=== PATIENT | male | born 1990 | race Caucasian/White ===

== ENCOUNTER 2017-04-10 12:45 | Emergency (ER) | payer OTHER ==
[2017-04-10 13:07] VITALS: BP 129/82; PULSE 80; RESP 17; TEMP 98.1; O2SAT 100
[2017-04-10] MEDS ORDERED: Lidocaine 2% Inj (20ml) IJ STA (13:19)
[2017-04-10] MEDS ORDERED: TDAP Vaccine 0.5 mL Syr IM ONE (13:19)
--- NOTE | 2017-04-10 13:21 | ED PDOC ---
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 Pt reports, " was slicing tomatoes, slipped cut my fingers". Laceration to Right 2nd and 3rd fingers with some nail injury noted, mild bleeding from Right index noted. Otherwise, pt denies obvious deformity, weakness, sensory or vascular deficits. Ambulate to ED for evaluation, not in any apparent distress. 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 - Endocrine/Metabolic Hx Endocrine Disorders: No - Hematological/Oncological Hx Blood Disorders: No - Integumentary Hx Dermatological Disorder: No - Musculoskeletal/Rheumatological Hx Musculoskeletal Disorders: No - Genitourinary/Gynecological Hx Bladder Stone: No - Psychiatric Hx Bipolar Disorder: No Hx Substance Use: No - Surgical History Hx Arthroscopy: No - Anesthesia Hx Anesthesia: No Family/Social History - Physician Review Nursing Documentation Reviewed: Yes Family/Social History: No Known Family HX Smoking Status: Current Some Days Smoker Hx Alcohol Use: Yes Frequency of alcohol use: Socially Hx Substance Use: No Allergies/Home Meds Allergies/Adverse Reactions: Allergies No Known Allergies Allergy (Verified 04/10/17 13:03) Review of Systems - Physician Review All systems were reviewed & negative as marked: Yes - Review of Systems Constitutional: Normal Musculoskeletal: Normal Skin: Laceration Neurological: Normal Endocrine: Normal Hemo/Lymphatic: Normal Psychiatric: Normal Physical Exam Vital Signs Reviewed: Yes Vital Signs Temp Pulse Resp BP Pulse Ox 04/10/17 13:06 98.1 F 80 17 129/82 100 Temperature: Afebrile Blood Pressure: Normal Pulse: Regular Respiratory Rate: Normal Appearance: Positive for: Well-Appearing, Non-Toxic, Comfortable Pain Distress: Mild Mental Status: Positive for: Alert and Oriented X 3 - Systems Exam Upper Extremity: Present: Normal ROM (of B/L UEs, no neurovasculard eficits.), NORMAL PULSES, Neurovascularly Intact, Capillary Refill < 2s. No: Deformity Neurological: Present: GCS=15, Motor Func Grossly Intact, Normal Sensory Function, Norm Deep Tendon Reflexes Skin: Present: Warm, Dry, Normal Color, Laceration (Right index finger: 5cm C- shape cutaneous laceration over radial aspect middle and distal phalanx, partial nail avulsion. Mild bloody oozing noted from wound.), Other (Right 3rd finger: small superficial laceration 1cm length over distal phalanx with partial nail avulsion.) Psychiatric: Present: Alert, Oriented x 3 Medical Decision Making ED Course and Treatment: 04/10/17 On re-eavl, pt is afebrile, hemodynamicaly stable Right hand: exam c/w laceration to Right index and 3rd finger with partial nail avulsion to both finger. Laceration repaired with sutures and skin adhesive. FAROM, no evidence of tendon or ligament injury, no neurovascular deficits. tetanus, oral abx given. Pt advised on wound care. ref. to f/u with PMD, hand specialists in 2 days for re-eval. return to ED if any worsening or new changes. - Medication Orders Current Medication Orders: Discontinued Medications Amoxicillin/Clavulanate Potassium (Augmentin 875 Mg-125 Mg Tab) 1 tab PO STAT STA PRN Reason: Protocol Stop: 04/10/17 14:34 Last Admin: 04/10/17 14:47 Dose: 1 tab Lidocaine HCl (Lidocaine 2% 20ml Vial) 0 ml IJ ONCE STA Stop: 04/10/17 13:20 Last Admin: 04/10/17 13:38 Dose: 3 ml Comments: by NICHOLAS Soriano Tetanus/Reduced Diphtheria/Acell Pertussis (Boostrix Vaccine Inj) 0.5 ml IM .ONCE ONE Stop: 04/10/17 13:20 Last Admin: 04/10/17 13:37 Dose: 0.5 ml Immunization Registry Document 04/10/17 13:37 SE (Rec: 04/10/17 13:37 SE [id number]) Immunization Registry Consent Date 04/10/17 Tramadol HCl (Ultram) 50 mg PO STAT STA Stop: 04/10/17 14:34 Last Admin: 04/10/17 14:47 Dose: 50 mg MAR Pain Assessment Document 04/10/17 14:47 SE (Rec: 04/10/17 14:47 [id number]) Pain Reassessment Is this a pain reassessment? No Sleep Is patient sleeping during reassessment? No Presence of Pain Presence of Pain Yes Pain Scale Used Pain Scale Used Numeric Disposition/Present on Arrival - Present on Arrival Any Indicators Present on Arrival: No History of DVT/PE: No History of Uncontrolled Diabetes: No Urinary Catheter: No History of Decub. Ulcer: No History Surgical Site Infection Following: None - Disposition Have Diagnosis and Disposition been Completed?: Yes Diagnosis: Laceration Disposition: HOME/ ROUTINE Disposition Time: 14:20 Patient Plan: Discharge Condition: STABLE Discharge Instructions (ExitCare): Care For Your Stitches (ED), Finger Laceration (ED) Additional Instructions: KEEP WOUND CLEAN, DRY FOR 2-3 DAYS CLEAN WOUND WITH PEROXIDE DAILY, APPLY ANTIBACTERIAL CREAM TOPICALLY TAKE ANTIBIOTIC PRESCRIBED SUTURE REMOVAL IN 10-14 DAYS FOLLOW UP WITH PMD IN 2-3 DAYS FOR RE-EVALUATION. RETURN TO ED IF ANY WORSENING OR NEW CHANGES. Prescriptions: Amoxicillin/Clavulanate [Augmentin 875 MG-125 MG] 1 tab PO BID #14 tab Bacitracin OINT 1 applic TP BID #1 tube Ibuprofen [Motrin Tab] 600 mg PO Q6 #20 tab Referrals: PCP,NO [Primary Care Provider] - Follow up with primary Forms: [employer] (Romansh), SCHOOL NOTE Laceration - Laceration Repair RIGHT INDEX Wound Length (In cm): 1.97 in Description Of Wound: Linear Anesthesia: Lidocaine 2% (DIGITAL BLOCK) Wound Examination: Irrigated With Saline, No FB With Wound Exploration, No Tendon Injury With Wound Exploration Wound Closure: Suture (#14) Suture Technique And Material Used: Interrupted, Nylon (5-0) Wound Complexity: Simple
[2017-04-10] MEDS ORDERED: Amoxicillin-Clav 875-125 mg Tab PO STA (14:33)
== END 2017-04-10 15:04 | disposition home or self-care (01) ==
LOC: ED 12:45
DX: S61.210A Laceration without foreign body of right index finger without damage to nail, initial encounter (principal); S61.212A Laceration without foreign body of right middle finger without damage to nail, initial encounter; W27.8XXA Contact with other nonpowered hand tool, initial encounter; Y93.G1 Activity, food preparation and clean up; Y92.000 Kitchen of unspecified non-institutional (private) residence as the place of occurrence of the external cause; Z23 Encounter for immunization

== ENCOUNTER 2017-04-13 10:26 | Emergency (ER) | payer OTHER ==
[2017-04-13 10:47] VITALS: BP 130/79; PULSE 60; RESP 16; TEMP 97.9; O2SAT 97
--- NOTE | 2017-04-13 10:59 | ED PDOC ---
Arrival/HPI - General Chief Complaint: Wound Check Time Seen by Provider: 04/13/17 10:55 Historian: Patient - History of Present Illness Narrative History of Present Illness (Text): 04/13/17 10:56 This 26 yo male presents to this ED for wound check. Patient stated he was seen in this ED x 3 days ago for fingers laceration repair. Patient was instructed to have wound check in 3 days. Patient denies new complains. Patient is right hand dominant. 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 - Endocrine/Metabolic Hx Endocrine Disorders: No - Hematological/Oncological Hx Blood Disorders: No - Integumentary Hx Dermatological Disorder: No - Musculoskeletal/Rheumatological Hx Musculoskeletal Disorders: No - Genitourinary/Gynecological Hx Bladder Stone: No - Psychiatric Hx Bipolar Disorder: No Hx Substance Use: No - Surgical History Hx Arthroscopy: No Other/Comment: L kidney sx - Anesthesia Hx Anesthesia: Yes Hx Anesthesia Reactions: No Family/Social History - Physician Review Nursing Documentation Reviewed: Yes Family/Social History: Other (noncontributory) Smoking Status: Current Some Days Smoker Hx Alcohol Use: Yes Hx Substance Use: No Allergies/Home Meds Allergies/Adverse Reactions: Allergies No Known Allergies Allergy (Verified 04/13/17 10:42) Review of Systems - Review of Systems Constitutional: Normal. absent: Fatigue, Weight Change, Fevers Eyes: Normal ENT: Normal Respiratory: Normal Cardiovascular: Normal Gastrointestinal: Normal Genitourinary Male: Normal Musculoskeletal: Other (right 2nd and 3rd finger wound check) Skin: Normal Neurological: Normal Endocrine: Normal Hemo/Lymphatic: Normal Psychiatric: Normal Physical Exam Vital Signs Temp Pulse Resp BP Pulse Ox 04/13/17 10:47 97.9 F 60 16 130/79 97 Temperature: Afebrile Blood Pressure: Normal Pulse: Regular Respiratory Rate: Normal Appearance: Positive for: Well-Appearing, Non-Toxic, Comfortable Pain Distress: None Mental Status: Positive for: Alert and Oriented X 3 - Systems Exam Head: Present: Atraumatic, Normocephalic Pupils: Present: PERRL Extroacular Muscles: Present: EOMI Conjunctiva: Present: Normal Mouth: Present: Moist Mucous Membranes Neck: Present: Normal Range of Motion Upper Extremity: Present: Normal ROM, NORMAL PULSES, Neurovascularly Intact, Capillary Refill < 2s, Other ((+) mutiple sutures located dorsal aspect of right index finger. No erythema or drainage.). No: Cyanosis, Edema, Erythema, Temperature Abnormalties Neurological: Present: GCS=15, CN II-XII Intact, Speech Normal Skin: Present: Warm, Dry, Normal Color. No: Rashes Psychiatric: Present: Alert, Oriented x 3, Normal Insight, Normal Concentration Medical Decision Making ED Course and Treatment: 04/13/17 11:24 Re-evaluation. Patient feels better. Discussed results and plan with patient who expresses understanding. All questions answered and there is agreement with the plan to discharge home with instructions. Patient stable for discharge. Return if symptoms persist or worsen Wound dressing was applied by me. No sign of infection. Re-evaluation Time: 11:25 Reassessment Condition: Re-examined, Improved Disposition/Present on Arrival - Present on Arrival Any Indicators Present on Arrival: No History of DVT/PE: No History of Uncontrolled Diabetes: No Urinary Catheter: No History of Decub. Ulcer: No History Surgical Site Infection Following: None - Disposition Have Diagnosis and Disposition been Completed?: Yes Diagnosis: Encounter for wound re-check Disposition: HOME/ ROUTINE Disposition Time: 11:25 Patient Plan: Discharge Condition: GOOD Discharge Instructions (ExitCare): Care For Your Stitches (ED) Additional Instructions: Call private doctor for follow up visit in 1-2 days. Sutures needs to be removed in 6 to 7 days from today. Clean wound daily with soap and water only. Return to emergency if unable to see your doctor. return to Emergency sooner if finger wound becomes infected painful, or pus draining. Continue with home antibiotic Referrals: Natalee Winkler, [Primary Care Provider] - Follow up with primary Forms: wali (Ukrainian)
== END 2017-04-13 11:35 | disposition home or self-care (01) ==
LOC: ED 10:26
DX: Z51.89 Encounter for other specified aftercare (principal)

== ENCOUNTER 2017-04-20 09:34 | Emergency (ER) | payer OTHER ==
[2017-04-20 09:39] VITALS: BMI 28.7
[2017-04-20 09:41] VITALS: BP 123/84; PULSE 65; RESP 18; TEMP 98.9; O2SAT 98
--- NOTE | 2017-04-20 10:08 | ED PDOC ---
Arrival/HPI - General Historian: Patient <Felicia Ramirez A - Last Filed: 04/20/17 20:17> <Olena Wiley - Last Filed: 04/21/17 12:21> - General Chief Complaint: Wound Check Time Seen by Provider: 04/20/17 09:52 - History of Present Illness Narrative History of Present Illness (Text): 04/20/17 10:04 26yo male who present to ED for suture removal form his left 2nd digit. Notes that sutures was placed here 12days ago s/p trauma. He took and finished the prescribed antibiotic. Never saw a hand specialist. Denies fever, redness, purulent discharge from wound. 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 - Endocrine/Metabolic Hx Endocrine Disorders: No - Hematological/Oncological Hx Blood Disorders: No - Integumentary Hx Dermatological Disorder: No - Musculoskeletal/Rheumatological Hx Musculoskeletal Disorders: No - Genitourinary/Gynecological Hx Bladder Stone: No - Psychiatric Hx Bipolar Disorder: No Hx Substance Use: No - Surgical History Hx Arthroscopy: No Other/Comment: L kidney sx - Anesthesia Hx Anesthesia: Yes Hx Anesthesia Reactions: No Hx Malignant Hyperthermia: No <Felicia Ramirez A - Last Filed: 04/20/17 20:17> Family/Social History - Physician Review Nursing Documentation Reviewed: Yes Family/Social History: Unknown Family HX Smoking Status: Current Some Days Smoker Hx Alcohol Use: Yes Hx Substance Use: No <JamesHappiness A - Last Filed: 04/20/17 20:17> Allergies/Home Meds <Felicia Ramirez A - Last Filed: 04/20/17 20:17> <Olena Wiley - Last Filed: 04/21/17 12:21> Allergies/Adverse Reactions: Allergies No Known Allergies Allergy (Verified 04/13/17 10:42) Review of Systems - Physician Review All systems were reviewed & negative as marked: Yes - Review of Systems Constitutional: Normal Eyes: Normal ENT: Normal Respiratory: Normal Cardiovascular: Normal Gastrointestinal: Normal Genitourinary Male: Normal Musculoskeletal: Normal Skin: Other (suture removal) Neurological: Normal Endocrine: Normal Hemo/Lymphatic: Normal Psychiatric: Normal <Felicia Ramirez A - Last Filed: 04/20/17 20:17> Physical Exam Vital Signs Reviewed: Yes Temperature: Afebrile Blood Pressure: Normal Pulse: Regular Respiratory Rate: Normal Appearance: Positive for: Well-Appearing, Non-Toxic, Comfortable Pain Distress: None Mental Status: Positive for: Alert and Oriented X 3 - Systems Exam Head: Present: Atraumatic, Normocephalic Pupils: Present: PERRL Extroacular Muscles: Present: EOMI Conjunctiva: Present: Normal Mouth: Present: Moist Mucous Membranes Neck: Present: Normal Range of Motion Respiratory/Chest: Present: Clear to Auscultation, Good Air Exchange. No: Respiratory Distress, Accessory Muscle Use Cardiovascular: Present: Regular Rate and Rhythm, Normal S1, S2. No: Murmurs Abdomen: Present: Normal Bowel Sounds. No: Tenderness, Distention, Peritoneal Signs Back: Present: Normal Inspection Upper Extremity: Present: Normal Inspection. No: Cyanosis, Edema Lower Extremity: Present: Normal Inspection. No: Edema Neurological: Present: GCS=15, CN II-XII Intact, Speech Normal Skin: Present: Warm, Dry, Normal Color, Other (Sutures noted in placed on left distal finger. Wound healing. No erythema. No purulent discharge noted). No: Rashes Psychiatric: Present: Alert, Oriented x 3, Normal Insight, Normal Concentration <Felicia Ramirez A - Last Filed: 04/20/17 20:17> Vital Signs Temp Pulse Resp BP Pulse Ox 04/20/17 09:36 98.9 F 65 18 123/84 98 Medical Decision Making <Felicia Ramirez A - Last Filed: 04/20/17 20:17> <Olena Wiley - Last Filed: 04/21/17 12:21> ED Course and Treatment: 04/20/17 10:09 Wound cleaned with betadine. 16sutres removed. Edges appear approximated. Cleaned with betadine, steri strip applied and dressed. wound still healing and pt never saw a hand specialist. He will be placed on Augmentin and advised to f/u with a hand specialist. 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 <Olena Wiley - Last Filed: 04/21/17 12:21> Disposition/Present on Arrival - Present on Arrival Any Indicators Present on Arrival: No History of DVT/PE: No History of Uncontrolled Diabetes: No Urinary Catheter: No History of Decub. Ulcer: No History Surgical Site Infection Following: None - Disposition Have Diagnosis and Disposition been Completed?: Yes Disposition Time: 10:10 Patient Plan: Discharge <Felicia Ramirez - Last Filed: 04/20/17 20:17> - Present on Arrival Any Indicators Present on Arrival: No History of DVT/PE: No History of Uncontrolled Diabetes: No Urinary Catheter: No History of Decub. Ulcer: No History Surgical Site Infection Following: None - Disposition Have Diagnosis and Disposition been Completed?: Yes <Olena Wiley - Last Filed: 04/21/17 12:21> - Disposition Diagnosis: Visit for suture removal Disposition: HOME/ ROUTINE Condition: STABLE Discharge Instructions (ExitCare): Stitches Removal (ED) Additional Instructions: Keep wound clean and dry Follow up with your private Doctor/Hand specialist Return to ED for any new symptoms Prescriptions: Amoxicillin/Clavulanate [Augmentin 875 MG-125 MG] 1 tab PO BID #14 tab Referrals: [facility] at [facility] [place] [Outside] - Follow up with primary Forms: [employer] (T[place]ight)
== END 2017-04-20 10:35 | disposition home or self-care (01) ==
LOC: ED 09:34
DX: Z48.02 Encounter for removal of sutures (principal)